=== PATIENT | male | born 1950 | race Caucasian/White ===

== ENCOUNTER 2018-01-02 08:55 | Outpatient (CLI) | payer MEDICARE, BC ==
--- NOTE | 2018-01-02 10:56 | RAD ---
FIVE VIEWS CERVICAL SPINE INCLUDING AP AND LATERAL AND FLEXION AND OPEN MOUTH ODONTOID VIEWS CERVICAL SPINE: FINDINGS: Five views cervical spine demonstrate ACDF with fusion of the C5, 6, an d7 vertebrae using anterior p late and screws. Some anterior osteophytes seen in the anterior inferior aspect of the C4 vertebrae. No evidence of heather- or retrolisthesis seen on flexion or extension views. IMPRESSION: Lower cervical spine anterior cervical diskectomy and fusion. No acute cervical spine fracture or phillip [place] lesions seen. No evidence of heather- or retrolisthesis seen on flexion or extension views. POS: [facility]
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
--- NOTE | 2018-01-02 12:20 | MRI ---
MRI CERVICAL SPINE WITH AND WITHOUT CONTRAST: Multiplanar, multisequential imaging of cervical spine obtained. INDICATION: Cervical radiculopathy. Prior cervical surgery from trauma years ago. COMPARISON: No comparison studies. CORRELATION: Correlation is made to today's CT cervical spine. FINDINGS: Postop fusion changes are seen with anterior plate and screws transfixing C5, C6, and C7 with interbo dy fusions at these levels. There are degenerative changes noted with spurring from C2-3 and C3-4. Mild loss of disk space at C4 -5 and at C7-T1. No significant disk bulge or spondylosis at C2-3. No foraminal narrowing. At C3-4, disk bulge and spondylosis abut the anterior cord. Right foraminal stenosis due to facet an d uncinate hypertrophy. At C4-5, posterior disk bulge and spondylosis efface the anterior subarachnoid space. These changes abut the cord. There is mild left foraminal narrowing due to facet and uncinate hypertrophy. Throughout the fused levels of C5-6 and C6-7, mild bony changes efface the anterior subarachnoid spac e. No cord impingement or significant cervical stenosis. At C7-T1, there is disk bulge and spondylosis effacing the anterior subarachnoid space without eviden ce of cord impingement. No evidence of significant foraminal stenosis at this level. Cervical cord signal appears normal. There is no evidence of cord edema or signal abnormality. IMPRESSION: 1. Moderate cervical canal stenosis at C3-4 and C4-5 secondary to disk bulge and spondylosis impingi ng on the anterior cord and hypertrophic changes seen in the posterior canal and impinging on the pos terior cord at both of these levels. 2. Postoperative changes with fusion at C5-6 and C6-7 as described above. 3. Mild spondylosis at C7-T1 as described above. POS: [facility]
[2018-01-02] MEDS ORDERED: Gadobenate Dimeglumine 529 MG/1 ML (20ML VIAL) ONE (13:27)
== END 2018-01-02 08:56 | disposition home or self-care (01) ==
LOC: TBSIIMAG 08:55
PROVIDERS: ATTEND Surgery
DX: M47.22 Other spondylosis with radiculopathy, cervical region (principal); M47.897 Other spondylosis, lumbosacral region; M48.062 Spinal stenosis, lumbar region with neurogenic claudication; M50.121 Cervical disc disorder at C4-C5 level with radiculopathy; M50.11 Cervical disc disorder with radiculopathy, high cervical region; M99.81 Other biomechanical lesions of cervical region; Z98.1 Arthrodesis status
CPT/HCPCS: 72050; 72125; 72156; 82565; A9579